=== PATIENT | female | born 2005 | race Caucasian/White ===

== ENCOUNTER 2024-04-26 21:13 | Emergency (ER) | payer OTHER, SELFPAY ==
[2024-04-26 21:36] VITALS: BP 128/78; PULSE 71; RESP 18; TEMP 36.6; O2SAT 100; BMI 28.4
--- NOTE | 2024-04-27 01:55 | ED_ITS ---
HPI - Wound/Laceration General Chief Complaint: Wound/Laceration Stated Complaint: cut finger at work Time Seen by Provider: 04/27/24 01:40 Source: patient Mode of arrival: Ambulatory History of Present Illness HPI narrative: 18-year-old woman comes in complaining of cutting the tip of her finger off. She believes that it is likely small but was bleeding significantly. Left hand there is a minor abrasion to the tip of the index finger that has been appropriately treated with a Band-Aid only. There is a superficial laceration that has removed the epidermal layer of the tip of the middle finger but does not involve deeper muscle layers or nail. There was no other injuries. She is otherwise neurovascularly intact Related Data Allergies Allergy/AdvReac Type Severity Reaction Status Date / Time No Known Drug Allergies Allergy Verified 04/26/24 21:41 Review of Systems Review of Systems Narrative: Pertinent positive and negative findings as per HPI Patient History Social History Smoking Status: Never smoker Smoking Status: Never smoker Exam Initial Vital Signs Initial Vital Signs: Vital Signs Temperature 97.8 F 04/26/24 21:36 Pulse Rate 71 04/26/24 21:36 Respiratory Rate 18 04/26/24 21:36 Blood Pressure 128/78 04/26/24 21:36 Pulse Oximetry 100 04/26/24 21:36 Oxygen Delivery Method Room Air 04/26/24 21:36 General: Alert appropriate in no acute distress Respiratory: Able to speak in full sentences, no obvious respiratory distress Skin: No obvious rashes, warm and dry Neurologic: Grossly intact no obvious asymmetries or abnormalities Psych: appropriate insight and affect, cooperative extremity: Left hand, minor abrasion to the tip of the index finger. Almost complete removal of a 1 cm in diameter epidermal layer on the tip of the middle finger. No nail bed involvement, no muscle involvement, bleeding is controlled. 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 There is not enough viable tissue for a suture to be helpful however the bit of skin I believe will be helpful as a biologic bandage. Considered glue but I believe that would increase her risk of infection. Steri-Strips were used to and here the tip of the skin back to the wound to act as a biologic bandage. She has given a aluminum splint to protect the fingertip. Advised using antibiotic ointment, and Steri-Strips as needed until the finger became less sensitive and she can switch directly to a Band- Aid. Questions are answered she is safe for discharge Discharge Plan Departure Patient Disposition: Home Clinical Impression: Avulsion of skin Instructions: DI for Minor Laceration Activity Restrictions/Additional Instructions: thank you for coming in today you got the very tip of your middle finger, just the skin. Using that little bit of skin that is still left as a biologic bandage will help with pain control and help the wound heal more quickly. Keeping a little bit of skin in place is a bit more difficult. In the emergency department we use some antibiotic ointment and some Steri-Strips. I have given you additional Steri-Strips to use because they do tend to fall off quickly with fingertips. I am also given you an aluminum splint to help protect the tip of the finger. That little flap of skin is going to completely fall off, once it does in the tip of the finger is less sensitive you can use just a simple Band-Aid If you find that you are getting worse or develop any new symptoms, please feel free to return to the emergency department for further evaluation. Stand Alone Forms: Patient Portal/API/Survey, Work Release Note
[2024-04-27] MEDS: BACITRACIN OINT 0.9 GM PCKT 1 APPLIC TOP (02:00)
[2024-04-27 02:15] VITALS: BP 126/60; PULSE 92; RESP 16; O2SAT 99
== END 2024-04-27 02:16 | disposition home or self-care (01) ==
PROVIDERS: Emergency Provider Emergency Medicine
DX: S61.211A Laceration without foreign body of left index finger without damage to nail, initial encounter (principal); S61.213A Laceration without foreign body of left middle finger without damage to nail, initial encounter; W26.9XXA Contact with unspecified sharp object(s), initial encounter
CPT/HCPCS: 99282